=== PATIENT | male | born 1995 | race African-American/Black ===

== ENCOUNTER 2020-05-20 16:26 | Emergency (ER) | payer OTHER, BC, SELFPAY ==
--- NOTE | ~2020-05-20 | XR_ITS ---
EXAMINATION: XR wrist RT min 3V DATE: 05/20/2020 17:34 INDICATION: Right wrist injury one month prior TECHNIQUE: Posteroanterior, ulnar deviation, oblique, and lateral views of the right wrist were obtai chely. COMPARISON: none FINDINGS: 2 mm ulnar positive variance. Alignment is otherwise normal. No fracture. Joint spaces are normal. Alaniz btle lucency at the radial aspect of the distal articular surface of the ulna which given the ulnar p ositive variance could be cystic change related to ulnocarpal impaction. Soft tissues are unremarkabl e. IMPRESSION: 1. 2 mm ulnar positive variance with suggestion of subtle cystic change at the radial aspect of the d istal articular surface of the ulna which could be related to ulnocarpal impaction. 2. Otherwise unremarkable right wrist radiographs with no acute osseous abnormality. Reviewed, dictated and finalized at location B. IMPRESSION: 1. 2 mm ulnar positive variance with suggestion of subtle cystic change at the radial aspect of the distal articular surface of the ulna which could be relate d to ulnocarpal impaction. 2. Otherwise unremarkable right wrist radiographs with no acute osseous abnorma lity.
--- NOTE | 2020-05-20 16:33 | ED.GENADULT ---
HPI - General Adult General Chief complaint: Extremity Injury, Upper Stated complaint: Wrist Pain Time Seen by Provider: 05/20/20 16:33 Source: patient Mode of arrival: ambulatory Limitations: no limitations History of Present Illness HPI narrative: 24-year-old male patient presents to the [facility] with complaints of right wrist pain. Patient states about a month ago he dropped some wood overextending his right wrist. Patient states that that time he did not get it checked out thought it was just a sprain. Patient states he really has not been doing anything for it denies taking any Tylenol, Motrin or icing it. Patient states within this past week he has been wearing a brace on the right wrist intermittently. 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 Patient is right-hand dominant. Denies any numbness or tingling to the hand or fingertips. Patient states most pain is on the ulnar side of the wrist Related Data Allergies Allergy/AdvReac Type Severity Reaction Status Date / Time pollen extracts AdvReac Mild RUNNY NOSE Verified 08/19/17 18:40 Review of Systems Review of Systems: Narrative: CONSTITUTIONAL: Denies fever, chills, or sweats. EYES: Denies visual changes, redness, or discharge. ENT: Denies rhinorrhea, congestion, sore throat, or otalgia. CARDIOVASCULAR: Denies chest pain, palpitations, or edema. RESPIRATORY: Denies cough or dyspnea. GASTROINTESTINAL: Denies abdominal pain, nausea, vomiting, or diarrhea. GENITOURINARY: Denies dysuria or hematuria. SKIN: Denies rash or itching. MUSCULOSKELETAL: Denies back pain, joint pain, or myalgia. Positive right wrist pain NEUROLOGIC: Denies headache, numbness, or weakness. PSYCHIATRIC: Denies anxiety or depression. PMFSH Comments At the time of my signature I agree with nursing past medical history, surgical, social, and family history. There is no relevant family history pertinent to the presenting complaint. Exam Narrative: Exam Narrative: GENERAL: Well-appearing, well-nourished, and in no acute distress. HEAD: Normocephalic, atraumatic. EYES: PERRLA and EOMI. ENT: Nares clear, no rhinorrhea or epistaxis. Mucous membranes moist. NECK: Supple. No lymphadenopathy CHEST: Clear to auscultation. No respiratory distress. HEART: Regular rate and rhythm. No murmur heard. Normal peripheral pulses. ABDOMEN: Soft, nontender, nondistended, normal active bowel sounds. EXTREMITIES: The R wrist is without obvious asymmetry or deformity when compared to the L wrist. No surface trauma, open wounds, swelling, or obvious deformity. No overlying erythema or warmth. No bony crepitus or focal area of TTP. No scaphoid fullness or tenderness to direct palpation or axial load. Normal flex/extension, ulnar/radial deviation. Motor/sensory function of ulnar, radial, median nerves intact. Ulnar and radial pulses intact. Negaitve Phalen's/Tinel's sign. Negative Toyin test. SKIN: Warm, dry, no rash. NEURO: No focal deficits. Alert and oriented x3. Course Reevaluation(s) Reevaluation #1: Reevaluated patient after his x-ray had resulted. Discussed with him that the x-ray shows ulnar carpal impaction of the left wrist right over the area where he is having pain. Discussed with him that since he has had this now for a month after having an injury I think he needs to follow-up with the orthopedic surgeon for further evaluation. Discussed with him that based on what I was reading this could possibly need surgery or possibly could lead to nerve damage in that hand therefore I think he needs to have further evaluation to assess this. Discussed with patient we will go ahead and take him off of work until he can see the orthopedic surgeon. Discussed with patient that he can take Tylenol ibuprofen for the pain we will go ahead and wrap him with an Dominguez wrap today and encouraged him to continue wearing his wrist brace that he has at h
[2020-05-20 16:38] VITALS: BP 149/80; PULSE 71; RESP 16; TEMP 36.2; O2SAT 100
== END 2020-05-20 18:05 | disposition home or self-care (01) ==
PROVIDERS: Emergency Provider Nurse Practitioner Family; PCP Family Medicine
DX: M25.831 Other specified joint disorders, right wrist (principal)
CPT/HCPCS: 73110; 99213; G0463